=== PATIENT | male | born 1975 | race Two or more races ===

== ENCOUNTER 2017-03-30 05:18 | Emergency (ER) | payer MEDICAID ==
[~2017-03-30] VITALS: Ht 175.3 cm; Wt 113.4 kg
[~2017-03-30 05:18] MED LIST: ASPI81TA2 PO; BLOO-668 IN; METF500T4 PO; SIMV20TA6 PO; TRAM50TA2 PO
--- NOTE | 2017-03-30 05:18 | NUR ---
Pt brought in with family for c/o midstenral chest pain x 30 minutes prior to arrival, radiating to back. Pt gowned and placed on monitor. Pt alert and oriented x3. Awaiting MD evaluation.
--- NOTE | 2017-03-30 05:35 | NUR ---
EMT at bedside for EKG
[2017-03-30] MEDS ORDERED: NITROGLYCERIN 0.4 MG/TAB BOTTLE ONE (05:41)
[2017-03-30] MEDS ORDERED: ASPIRIN 325 MG TABLET ONE (05:41)
--- NOTE | 2017-03-30 05:48 | NUR ---
IV placed LAC 18G. Blood drawn for labs. Xray taken at bedside.
[2017-03-30] MEDS ORDERED: NITROGLYCERIN 0.4 MG/TAB BOTTLE SL ONE (06:00)
[2017-03-30] MEDS ORDERED: ASPIRIN 325 MG TABLET PO ONE (06:00)
[2017-03-30 06:02] LABS: BASOPHILS % (AUTO) 0.6 % (0.0-2.0); EOSINOPHILS # (AUTO) 0.1 /CMM (0.0-0.7); EOSINOPHILS % (AUTO) 1.7 % (0.0-6.0); HEMOGLOBIN 13.9 g/dL (13.5-17.5); LYMPHOCYTES # (AUTO) 2.1 /CMM (0.8-4.8); LYMPHOCYTES % (AUTO) 40.3 % (20.0-44.0); MEAN CORPUSCULAR HEMOGLOBIN 21 PG (26.0-33.0); MEAN CORPUSCULAR HGB CONC 31 g/dl (31.0-36.0); MEAN CORPUSCULAR VOLUME 67 fL (80-96); MONOCYTES # (AUTO) 0.4 /CMM (0.1-1.30); MONOCYTES % (AUTO) 6.7 % (2.0-12.0); NEUTROPHILS # (AUTO) 2.6 /CMM (1.8-8.9); NEUTROPHILS % (AUTO) 50.7 % (43.0-81.0); PLATELET COUNT (AUTO) 137 /CMM (150-450); RDW COEFFICIENT OF VARIATION 16.2 (11.5-15.0); RED BLOOD CELL COUNT(AUTO) 6.72 MIL/uL (4.5-6.0); WHITE BLOOD COUNT (AUTO) 5.2 K/uL (4.3-11.0)
--- NOTE | 2017-03-30 06:04 | NUR ---
Nitro SL given x3 with no relief. made aware.
--- NOTE | 2017-03-30 06:06 | NUR ---
PT ASSIGNED TO [facility] [id number]
[2017-03-30 06:15] LABS: INR 0.98 (0.87-1.13); PROTHROMBIN TIME 10.5 SECS (9.5-12.7)
--- NOTE | 2017-03-30 06:16 | NUR ---
NEW ROOM 309-1
[2017-03-30 06:17] LABS: HEMATOCRIT 44 % (39-51)
[2017-03-30 06:18] LABS: CALCIUM, SERUM 9.3 mg/dL (8.5-10.1); CARBON DIOXIDE 27 mmol/L (21-32); CHLORIDE 101 mmol/L (98-107); GLUCOSE 180 mg/dL (74-106); POTASSIUM 3.5 mmol/L (3.5-5.1); SODIUM SERUM 139 mmol/L (136-145); UREA NITROGEN, BLOOD 15 mg/dL (7-18)
[2017-03-30] MEDS ORDERED: MAG HYDROX/AL HYDROX/SIMETH 30 ML UDC ONE (06:19)
[2017-03-30] MEDS ORDERED: FAMOTIDINE/PF INJ 20 MG/2 ML VIAL IV ONE ×2 (06:20→06:30)
[2017-03-30] MEDS ORDERED: ONDANSETRON HCL/PF 4 MG/2 ML VIAL ONE (06:24)
[2017-03-30] MEDS ORDERED: MORPHINE SULFATE INJ 4 MG/ML DISP.SYRIN ONE (06:25)
[2017-03-30 06:28] LABS: TROPONIN I < 0.017 ng/mL (0.00-0.056)
[2017-03-30] MEDS ORDERED: MORPHINE SULFATE INJ 2 MG/ML DISP.SYRIN IV ONE (06:30)
[2017-03-30] MEDS ORDERED: MAG HYDROX/AL HYDROX/SIMETH 30 ML UDC PO ONE (06:30)
[2017-03-30] MEDS ORDERED: ONDANSETRON HCL/PF 4 MG/2 ML VIAL IVP ONE (06:30)
[2017-03-30 06:37] LABS: BAND % (MANUAL) 1 % (0.0-5.0); EOSINOPHILS % (MANUAL) 1 % (0-4); LYMPHOCYTES % (MANUAL) 37 % (16-48); MONOCYTES % (MANUAL) 3 % (0-11.0); NEUTROPHILS % (MANUAL) 58 (42-76)
--- NOTE | 2017-03-30 07:05 | NUR ---
RECEIVED REPORT FROM DEIDRE PETIT FOR [facility].
[2017-03-30 07:16] LABS: ALBUMIN 4.3 g/dL (3.4-5.0); BILIRUBIN,DIRECT 0.1 mg/dL (0.0-0.2); TOTAL PROTEIN, SERUM 8.2 g/dL (6.4-8.2)
--- NOTE | 2017-03-30 07:45 | NUR ---
Patient discharged to home in stable condition. Prescription handed to patient. IV removed, ID band removed. Written and verbal after care instructions given. Patient verbalizes understanding of instruction.
[2017-03-30 08:13] VITALS: BP 127/65
== END 2017-03-30 07:45 | disposition home or self-care (01) ==
LOC: ER 05:20
DX: R10.13 Epigastric pain (principal); E11.9 Type 2 diabetes mellitus without complications; E78.00 Pure hypercholesterolemia, unspecified; I10 Essential (primary) hypertension; Z86.73 Personal history of transient ischemic attack (TIA), and cerebral infarction without residual deficits
CPT/HCPCS: 36415; 71010; 80048; 80076; 83690; 84484; 85025; 85730; 93005; 96374; 96375; 99285; A4606; J2270; J2405; J3490; Z7610

== ENCOUNTER 2017-07-31 17:39 | Emergency (ER) | payer MEDICAID ==
[~2017-07-31] VITALS: Ht 175.3 cm; Wt 88.5 kg
[~2017-07-31 17:39] MED LIST changes: +ASPI-1169 PO; -ASPI81TA2 PO
[2017-07-31] MEDS ORDERED: MECLIZINE HCL 12.5 MG TABLET PO ONE (19:00)
[2017-07-31] MEDS ORDERED: ACETAMINOPHEN 325 MG TABLET PO ONE (19:00)
[2017-07-31] MEDS ORDERED: MECLIZINE HCL 25 MG TABLET ONE (19:05)
[2017-07-31] MEDS ORDERED: ACETAMINOPHEN ES 500 MG TABLET ONE (19:05)
[2017-07-31 20:17] VITALS: BP 128/76
== END 2017-07-31 20:20 | disposition home or self-care (01) ==
LOC: ER 17:50
DX: S00.83XA Contusion of other part of head, initial encounter (principal); R51 Headache; R42 Dizziness and giddiness; I10 Essential (primary) hypertension; E78.00 Pure hypercholesterolemia, unspecified; E11.9 Type 2 diabetes mellitus without complications; Z86.73 Personal history of transient ischemic attack (TIA), and cerebral infarction without residual deficits; Z79.82 Long term (current) use of aspirin; Z79.84 Long term (current) use of oral hypoglycemic drugs; W22.8XXA Striking against or struck by other objects, initial encounter; Y93.89 Activity, other specified; Y92.89 Other specified places as the place of occurrence of the external cause; Y99.8 Other external cause status
CPT/HCPCS: 70450; 99284; A4606 ×2; J8597; Z7610 ×2

== ENCOUNTER 2017-08-12 17:07 | Emergency (ER) | payer MEDICAID ==
[~2017-08-12] VITALS: Ht 175.3 cm; Wt 90.7 kg
[2017-08-12 17:10] VITALS: BP 125/84
== END 2017-08-12 18:37 | disposition home or self-care (01) ==
LOC: ER 17:21
DX: K64.9 Unspecified hemorrhoids (principal); I10 Essential (primary) hypertension; E11.9 Type 2 diabetes mellitus without complications; E78.00 Pure hypercholesterolemia, unspecified; Z79.82 Long term (current) use of aspirin; Z86.73 Personal history of transient ischemic attack (TIA), and cerebral infarction without residual deficits
CPT/HCPCS: 99283; A4606; Z7610

== ENCOUNTER 2019-08-13 15:02 | Emergency (ER) | payer MEDICAID ==
[~2019-08-13] VITALS: Ht 170.2 cm; Wt 90.7 kg
[~2019-08-13 15:02] MED LIST changes: +METF-440 PO; -METF500T4 PO; +SIMV-46 PO; -SIMV20TA6 PO
--- NOTE | 2019-08-13 15:46 | NUR ---
CAME IN FOR LOWER BACK PAIN X 2 DAYS. DENIES ANY INJURY. TO ER BED 3, HOOKED TO MONITOR, CHANGED TO HOSP GOWN, WARM BLAKET PROVIDED, PATIENT AOx4 , BREATHING EVEN AND UNLABORED. AWAITING MD ZHAO.
--- NOTE | 2019-08-13 16:05 | NUR ---
DONALD VALLADARES AT BEDSIDE
[2019-08-13] MEDS ORDERED: DIAZEPAM 10 MG TABLET PO ONE (16:30)
[2019-08-13] MEDS ORDERED: HYDROCODONE/APAP 5/325MG 1 EACH TABLET PO ONE (16:30)
[2019-08-13] MEDS ORDERED: DIAZEPAM 5 MG TABLET ONE (17:26)
[2019-08-13] MEDS ORDERED: HYDROCODONE/APAP 5/325MG 1 EACH TABLET ONE (17:26)
--- NOTE | 2019-08-13 19:08 | NUR ---
Patient discharged to home with in stable condition. Instructed not to drive. Written and verbal after care instructions given. Patient verbalizes understanding of instruction.
[2019-08-13 19:09] VITALS: BP 124/71
== END 2019-08-13 19:09 | disposition home or self-care (01) ==
LOC: ER 15:05
DX: M54.5 Low back pain (principal); I10 Essential (primary) hypertension; E78.00 Pure hypercholesterolemia, unspecified; E11.9 Type 2 diabetes mellitus without complications; Z60.2 Problems related to living alone; Z79.82 Long term (current) use of aspirin; Z79.84 Long term (current) use of oral hypoglycemic drugs; Z79.899 Other long term (current) drug therapy; Z86.73 Personal history of transient ischemic attack (TIA), and cerebral infarction without residual deficits
CPT/HCPCS: 72131-TC

== ENCOUNTER 2020-10-20 20:27 | Emergency (ER) | payer MEDICAID ==
[~2020-10-20] VITALS: Ht 175.3 cm; Wt 99.8 kg
[2020-10-20 21:03] VITALS: BP 125/72
--- NOTE | 2020-10-20 21:45 | NUR ---
radiology at bedside for foot xr
[2020-10-20] MEDS ORDERED: ACETAMINOPHEN ES 500 MG TABLET ONE (22:42)
[2020-10-20] MEDS ORDERED: ACETAMINOPHEN ES 500 MG TABLET PO ONE (23:00)
== END 2020-10-20 23:31 | disposition home or self-care (01) ==
LOC: ER 20:33
DX: S90.121A Contusion of right lesser toe(s) without damage to nail, initial encounter (principal); I10 Essential (primary) hypertension; E78.00 Pure hypercholesterolemia, unspecified; E11.9 Type 2 diabetes mellitus without complications; Z86.73 Personal history of transient ischemic attack (TIA), and cerebral infarction without residual deficits; Z60.2 Problems related to living alone; Z79.899 Other long term (current) drug therapy; Z79.82 Long term (current) use of aspirin; Z79.84 Long term (current) use of oral hypoglycemic drugs; X58.XXXA Exposure to other specified factors, initial encounter; Y93.89 Activity, other specified; Y92.89 Other specified places as the place of occurrence of the external cause; Y99.8 Other external cause status
CPT/HCPCS: 73660-TC